=== PATIENT | female | born 1995 | race Hispanic/Latino ===

== ENCOUNTER 2017-12-16 07:21 | Day surgery (SDC) | payer BC ==
[2017-12-16] MEDS ORDERED: Midazolam 2 MG/2 ML VIAL ONE (09:40)
--- NOTE | 2017-12-16 09:40 | CP.SDSHP ---
Same Day Surgery H & P - History Proposed Procedure: EGD Pre-Op Diagnosis: abdominal pain - Previous Medical/Surgical History Comments: anxiety - Allergies Allergies: Allergies No Known Allergies Allergy (Verified 12/15/17 12:43) - Physical Exam General Appearance: NAD Vital Signs: Vital Signs 12/16/17 07:30 Temperature 99.1 F Pulse Rate 80 Respiratory 16 Rate Blood Pressure 109/73 O2 Sat by Pulse 100 Oximetry Mental Status: Alert & Oriented x3 Neuro: WNL Heart: WNL Lungs: WNL GI: WNL - {Optional Preform as Required} Abdomen: WNL - Impression Pt. Evaluated Today:Candidate for Anesthesia & Procedure: Yes - Date & Time Date: 12/16/17 Time: 09:40 Short Stay Discharge - Short Stay Discharge Admitting Diagnosis/Reason for Visit: ABDOMINAL DISTENSION (GASEOUS) Disposition: HOME/ ROUTINE
[2017-12-16] MEDS ORDERED: Propofol 10 mg/ml Inj (20 ML) ONE (09:42)
[2017-12-16] MEDS ORDERED: Lidocaine Hydrochloride 5 ML INJ ONE (09:43)
[2017-12-16 10:06] VITALS: TEMP 98.7
[2017-12-16 10:38] VITALS: O2SAT 98
[2017-12-16 11:12] VITALS: BP 121/67; PULSE 68; RESP 14
== END 2017-12-16 10:55 | disposition home or self-care (01) ==
LOC: C.ENDO 07:21
PROVIDERS: ATTEND Internal Medicine Gastroenterology
DX: R14.0 Abdominal distension (gaseous) (principal); K20.9 Esophagitis, unspecified; K29.70 Gastritis, unspecified, without bleeding
CPT/HCPCS: 43239; 43247; 84703; 88305; J2250; J2704